=== PATIENT | female | born 1990 | race Hispanic/Latino ===

== ENCOUNTER 2021-09-05 04:18 | Emergency (ER) | payer OTHER ==
[2021-09-05] MEDS ORDERED: Morphine 4 MG/ML VIAL ONE (04:59)
[2021-09-05] MEDS ORDERED: Ondansetron PF 4 MG/2 ML Vial ONE (04:59)
[2021-09-05 05:07] LABS: #Monocytes 0.3 10x3/uL (0.0-1.1); #Neutrophils 6.9 10x3/uL (1.5-8.4); %Basophils 0.2 % (0.0-2.0); %Eosinophils 0.2 % (0.0-6.0); %Lymphocytes 13.2 % (18.0-47.0); %Monocytes 3.9 % (0.0-10.0); %Neutrophils 82.3 % (40.0-75.0); Hemoglobin 11.7 g/dL (12.0-15.5); Mean Corpuscular HGB CONC 32.4 g/dL (32.0-36.0); Mean Corpuscular Hemoglobin 25.3 pg (27.0-33.0); Mean Corpuscular Volume 78.1 fl (81.6-98.3); Mean Platelet Volume 11.6 fl (7.4-10.4); Platelet Count 208 10x3/uL (150-450); RBC Distribution Width 15.8 % (11.5-14.5); Red Blood Cell (RBC) Count 4.62 10x6/uL (3.90-5.03); White Blood Cell (WBC) Count 8.4 10x3/uL (3.5-10.5)
[2021-09-05 05:08] LABS: Bilirubin Neg (Negative); Blood, Urine Negative (Negative); Clarity Clear (Clear); Glucose, Urine (Dipstick) Normal (Negative); Ketone, Urine 150 mg/dL (Negative); Leukocyte Negative (Negative); Nitrite Negative (Negative); Protein, Urine (Dipstick) Negative (Neg-Trace); Specific Gravity, Urine 1.015 (1.002-1.036); Urobilinogen Normal mg/dL (Less than 2)
[2021-09-05 05:09] LABS: ALT (SGPT) 20 U/L (8-55); AST (SGOT) 15 U/L (5-34); Alkaline Phosphatase 56 U/L (40-110); Anion Gap 14 mmol/L (10-20); BUN (Urea Nitrogen) 12 mg/dL (7.0-18.7); Bilirubin, Total 0.3 mg/dL (0.2-1.2); Calc. Creatinine Clearance 0 mL/min (70-130); Calcium 8.8 mg/dL (7.8-10.44); Carbon Dioxide 21 mmol/L (22-29); Chloride 106 mmol/L (98-107); Globulin 3.8 g/dL (2.4-3.5); Glucose 142 mg/dL (70-105); Lipase 15 U/L (8-78); Potassium 3.7 mmol/L (3.5-5.1); Protein, Total 7.8 g/dL (6.0-8.3); Sodium 137 mmol/L (136-145)
[2021-09-05 05:11] LABS: Pregnancy Test - Urine (BHCG) POSITIVE (Negative); Pregu Control Background? CLEAR/WHITE (CLR/WHITE); Pregu Control Bar Appear? YES (CONTROL BAR); Specific Gravity 1.015 (1.002-1.036)
== END 2021-09-05 07:23 | disposition home or self-care (01) ==
LOC: CSHERS 04:18
DX: O99.611 Diseases of the digestive system complicating pregnancy, first trimester (principal); K80.70 Calculus of gallbladder and bile duct without cholecystitis without obstruction; Z3A.01 Less than 8 weeks gestation of pregnancy
CPT/HCPCS: 76705; 76856; 80053; 81003; 81025; 83690; 84702; 85025; 96374; 96375; J2270; J2405

== ENCOUNTER 2022-04-19 08:25 | Outpatient (CLI) | payer OTHER | END 2022-04-19 08:26 | disposition home or self-care (01) | LOC: CSHLAB 08:25 | PROVIDERS: ATTEND Family Medicine | DX: U07.1 COVID-19 (principal) | CPT/HCPCS: 85027; 86780; 86850; 86900; 86901; 87340; U0003; U0005 ==

== ENCOUNTER 2022-04-21 05:42 | Inpatient (IN) | payer OTHER ==
[2022-04-19 13:01] LABS: Hemoglobin 12.4 g/dL (12.0-15.5); Mean Corpuscular HGB CONC 33.2 g/dL (32.0-36.0); Mean Corpuscular Hemoglobin 26.1 pg (27.0-33.0); Mean Corpuscular Volume 78.7 fl (81.6-98.3); Mean Platelet Volume 12.2 fl (7.4-10.4); Platelet Count 155 10x3/uL (150-450); RBC Distribution Width 19.1 % (11.5-14.5); Red Blood Cell (RBC) Count 4.75 10x6/uL (3.90-5.03); White Blood Cell (WBC) Count 6.7 10x3/uL (3.5-10.5)
[2022-04-19 13:12] LABS: Hep B Surf Ag Non-Reactive S/CO (NonReactive)
[2022-04-19 13:13] LABS: Syphilis Antibody Nonreactive (Nonreactive); Syphilis Antibody Index 0.02 S/CO (<1.00 Non-Reactive)
[2022-04-19 13:35] LABS: HBSAg Index 0.21 S/CO (0-0.99)
[2022-04-21 06:17] VITALS: BMI 47.0
[2022-04-21] MEDS ORDERED: Famotidine/PF 20 mg/2ml Vial SLOW IVP PRN (06:27)
[2022-04-21] MEDS ORDERED: Ondansetron PF 4 MG/2 ML Vial IVP PRN ×3 (06:30→11:03)
[2022-04-21] MEDS ORDERED: Lactated Ringer's 1,000 ML IV SCH (06:30)
[2022-04-21] MEDS ORDERED: Promethazine HCl 25 MG/ML VIAL IM PRN ×3 (06:30→11:03)
[2022-04-21] MEDS ORDERED: hydrALAZINE 20 MG/ML VIAL SLOW IVP PRN ×2 (06:30→11:03)
[2022-04-21] MEDS ORDERED: Bicitra 30 ML UDCUP PO SCH (06:30)
[2022-04-21] MEDS ORDERED: Misoprostol 200 MCG TAB ONE (07:13)
[2022-04-21] MEDS ORDERED: Oxytocin 10 UNITS/ML VIAL ONE (07:13)
[2022-04-21] MEDS ORDERED: Tranexamic Acid 1,000 MG/10 ML VIAL ONE (07:13)
[2022-04-21] MEDS ORDERED: Carboprost 250 MCG/ML AMP ONE (07:14)
[2022-04-21] MEDS ORDERED: Methylergonovine 0.2 MG/ML VIAL ONE (07:14)
[2022-04-21] MEDS ORDERED: Morphine PF 10 MG/10 ML VIAL ONE (07:40)
[2022-04-21] MEDS ORDERED: Ketorolac Tromethamine 30 MG/ML VIAL ONE (08:35)
[2022-04-21] MEDS ORDERED: ePHEDrine Sulfate 50 MG/10 ML VIAL ONE (08:39)
[2022-04-21] MEDS ORDERED: EPINEPHrine 1 MG/ML AMP ONE (08:52)
[2022-04-21] MEDS ORDERED: HYDROmorphone 2 MG/ML VIAL SLOW IVP PRN (09:08)
[2022-04-21] MEDS ORDERED: diphenhydrAMINE 50 MG/ML VIAL IVP PRN (09:08)
[2022-04-21] MEDS ORDERED: Ketorolac Tromethamine 30 MG/ML VIAL IVP PRN (09:08)
[2022-04-21] MEDS ORDERED: Naloxone HCl 0.4 mg/ml Vial IV PRN (09:08)
[2022-04-21] MEDS ORDERED: Naloxone HCl 0.4 mg/ml Vial IVP PRN ×2 (09:08)
[2022-04-21] MEDS ORDERED: Ondansetron HCl/PF 4 MG/2 ML Vial IVP PRN (09:08)
[2022-04-21] MEDS ORDERED: Fentanyl 100 MCG/2 ML VIAL SLOW IVP PRN (09:08)
[2022-04-21] MEDS ORDERED: Promethazine HCl 25 MG SUPP PR PRN (09:08)
[2022-04-21] MEDS ORDERED: Meperidine HCl/PF 25 MG/ML VIAL SLOW IVP PRN (09:08)
[2022-04-21] MEDS ORDERED: Moisturizing Cream (Eucerin) 113 GM JAR TOP PRN (09:08)
[2022-04-21] MEDS ORDERED: Ketorolac Tromethamine 30 MG/ML VIAL IVP SCH (09:15)
[2022-04-21] MEDS ORDERED: Communication Order-Pharmacy FS SCH (09:15)
[2022-04-21] MEDS ORDERED: NS w/ Oxytocin 30 units 500 ML ONE (09:55)
[2022-04-21] MEDS ORDERED: diphenhydrAMINE 25 MG CAP PO PRN (11:03)
[2022-04-21] MEDS ORDERED: Simethicone Chewable 80 MG TAB PO PRN (11:03)
[2022-04-21] MEDS ORDERED: Bisacodyl 10 MG SUPP PR PRN (11:03)
[2022-04-21] MEDS ORDERED: Lanolin Ointment 7 GM TUBE TOP PRN (11:03)
[2022-04-21] MEDS ORDERED: Ferrous Sulfate 325 MG TAB PO SCH (12:00)
[2022-04-21] MEDS ORDERED: Docusate 100 MG CAP PO SCH (12:00)
[2022-04-21] MEDS ORDERED: Prenatal Vitamin 1 TAB PO SCH (12:00)
[2022-04-21] MEDS: Ketorolac Tromethamine 30 MG/ML VIAL IVP SCH (14:12)
[2022-04-22] MEDS: Ketorolac Tromethamine 30 MG/ML VIAL IVP SCH ×3 (02:22→07:59)
[2022-04-22 04:06] LABS: Hemoglobin 9.7 g/dL (12.0-15.5); Mean Corpuscular HGB CONC 33.3 g/dL (32.0-36.0); Mean Corpuscular Hemoglobin 25.9 pg (27.0-33.0); Mean Corpuscular Volume 77.6 fl (81.6-98.3); Mean Platelet Volume 11.9 fl (7.4-10.4); Platelet Count 128 10x3/uL (150-450); RBC Distribution Width 18.9 % (11.5-14.5); Red Blood Cell (RBC) Count 3.75 10x6/uL (3.90-5.03); White Blood Cell (WBC) Count 6.7 10x3/uL (3.5-10.5)
[2022-04-22] MEDS: Ferrous Sulfate 325 MG TAB PO SCH ×3 (06:43→20:12)
[2022-04-22] MEDS: Docusate 100 MG CAP PO SCH ×3 (06:43→20:12)
[2022-04-22] MEDS: Prenatal Vitamin 1 TAB PO SCH (07:59)
[2022-04-22] MEDS: HYDROcodone/Acetaminophen 5/325 mg Tablet PO PRN ×3 (08:00→23:15)
[2022-04-22] MEDS ORDERED: Boostrix 0.5 ML (Tdap) VIAL IM ONE (11:03)
[2022-04-22] MEDS: Ibuprofen 800 MG TAB PO SCH ×2 (13:16→23:10)
[2022-04-23] MEDS: HYDROcodone/Acetaminophen 5/325 mg Tablet PO PRN (05:50)
[2022-04-23] MEDS: Ibuprofen 800 MG TAB PO SCH ×2 (05:50→13:16)
[2022-04-23 08:18] VITALS: BP 121/69; TEMP 98.8
[2022-04-23] MEDS: Ferrous Sulfate 325 MG TAB PO SCH (09:53)
[2022-04-23] MEDS: Docusate 100 MG CAP PO SCH (09:53)
[2022-04-23] MEDS: Prenatal Vitamin 1 TAB PO SCH (09:53)
== END 2022-04-23 15:44 | disposition home or self-care (01) | DRG 786 ==
LOC: CSHLD 05:42 → CSHANTE 11:25
PROVIDERS: ADMIT Family Medicine; ATTEND Family Medicine
PROC: 10D00Z1 Extraction of Products of Conception, Low, Open Approach (ICD-10-PCS; principal; 2022-04-21)
PROC: 8E0ZXY6 Isolation (ICD-10-PCS; 2022-04-21)
DX: O34.211 Maternal care for low transverse scar from previous cesarean delivery (principal); U07.1 COVID-19; O98.52 Other viral diseases complicating childbirth; Z3A.39 39 weeks gestation of pregnancy; Z37.0 Single live birth; E66.01 Morbid (severe) obesity due to excess calories; O99.214 Obesity complicating childbirth; O24.420 Gestational diabetes mellitus in childbirth, diet controlled
CPT/HCPCS: 36415; 51702; 85027; 86780; 86850; 86900; 86901; 87340; J0171; J1200; J1885; J2274; J2405; S0028; U0003; U0005